=== PATIENT | male | born 1970 | race Caucasian/White ===

== ENCOUNTER 2021-10-26 15:40 | Outpatient (CLI) | payer OTHER | END 2021-10-26 15:41 | disposition home or self-care (01) | LOC: BICRAD 15:40 | PROVIDERS: ATTEND Family Medicine | DX: Z01.818 Encounter for other preprocedural examination (principal) | CPT/HCPCS: 71046 ==

== ENCOUNTER 2023-10-09 12:37 | Outpatient (CLI) | payer OTHER | END 2023-10-09 12:38 | disposition home or self-care (01) | LOC: SCSRAD 12:37 | PROVIDERS: ATTEND Family Medicine | DX: R05.9 Cough, unspecified (principal); R91.8 Other nonspecific abnormal finding of lung field | CPT/HCPCS: 71046 ==

== ENCOUNTER 2024-05-27 07:25 | Day surgery (SDC) | payer OTHER ==
[2024-05-26 11:21] VITALS: BMI 38.1
[2024-05-27] MEDS ORDERED: Ondansetron PF 4 MG/2 ML Vial ONE (07:48)
[2024-05-27] MEDS ORDERED: Dexamethasone 20 MG/5 ML VIAL ONE (07:48)
[2024-05-27] MEDS ORDERED: Midazolam HCl 2 mg/2 ml Vial ONE (07:48)
[2024-05-27] MEDS ORDERED: Lidocaine 1% PF 5 ML VIAL ONE (07:48)
[2024-05-27] MEDS ORDERED: PROPOFOL 20 ML ONE (07:48)
[2024-05-27] MEDS ORDERED: fentaNYL PF 100 MCG/2 ML SYRINGE ONE ×2 (07:48→09:34)
[2024-05-27] MEDS ORDERED: Bacitracin Zinc Ointment 30 gm TUBE ONE (07:59)
[2024-05-27] MEDS ORDERED: Bupivacaine PF 0.5% 30 ML VIAL ONE (07:59)
[2024-05-27] MEDS ORDERED: CEFAZOLIN 2 GM VIAL ONE (08:41)
[2024-05-27] MEDS ORDERED: CEFAZOLIN 1 GM VIAL ONE (08:49)
[2024-05-27] MEDS ORDERED: PHENYLEPHRINE-NS 100 MCG/ML 10 ML SYRINGE ONE (10:24)
[2024-05-27] MEDS ORDERED: Ketorolac Tromethamine 30 MG (1 mL) VIAL ONE (11:33)
== END 2024-05-27 13:41 | disposition home or self-care (01) ==
LOC: SDC 07:25
PROVIDERS: ATTEND Orthopaedic Surgery Hand Surgery
PROC: 0LQ70ZZ Repair Right Hand Tendon, Open Approach (ICD-10-PCS; principal; 2024-05-27)
DX: S66.221A Laceration of extensor muscle, fascia and tendon of right thumb at wrist and hand level, initial encounter (principal); S66.821A Laceration of other specified muscles, fascia and tendons at wrist and hand level, right hand, initial encounter; Z98.84 Bariatric surgery status; Z88.0 Allergy status to penicillin; Z91.018 Allergy to other foods; Z88.2 Allergy status to sulfonamides; Z79.899 Other long term (current) drug therapy; X58.XXXA Exposure to other specified factors, initial encounter
CPT/HCPCS: C1713; C1894; J0665; J0690; J1100; J1885; J2250; J2405; J2704